=== PATIENT | male | born 1935 | race Caucasian/White ===

== ENCOUNTER 2020-04-25 07:56 | Emergency (ER) | payer OTHER ==
[~2020-04-25] VITALS: Ht 170.2 cm; Wt 72.6 kg
[2020-04-25] MEDS ORDERED: LEVO-T100 MCG PO (08:47)
[2020-04-25] MEDS ORDERED: JANTOVEN2 MG PO (08:48)
[2020-04-25] MEDS ORDERED: ZESTRIL10 MG PO (08:48)
[2020-04-25] MEDS ORDERED: ASA81BEC PO (08:48)
[2020-04-25] MEDS ORDERED: WARFARIN SODIUM10 MG PO (08:48)
[2020-04-25 09:03] LABS: ABSOLUTE NEUTROPHILS 5.4 thou/uL (1.4-8.2); BASOPHILS 0.2 % (0.0-2.0); EOSINOPHILS 0.3 % (0.0-3.0); HEMATOCRIT 35.6 % (42.0-52.0); HEMOGLOBIN 11.7 gm/dL (14.0-18.0); LYMPHOCYTES 11.9 % (24.0-44.0); MCH 31.4 pg (26.0-34.0); MCHC 32.9 g/dL (28.0-37.0); MCV 95.5 fL (80.0-100.0); MONOCYTES 9.9 % (1.0-8.0); PLATELET COUNT 160 thou/uL (150-400); POLYS 77.7 % (36.0-66.0); RBC 3.73 mil/uL (4.50-6.00); RDW 13.7 % (10.5-14.5); WBC 6.9 thou/uL (4.0-11.0)
[2020-04-25 09:05] LABS: CALCIUM 8.4 mg/dL (8.5-10.1); POTASSIUM 4.5 mmol/L (3.5-5.1)
[2020-04-25 09:09] LABS: APTT 40.7 Seconds (24.5-32.8); INR 2.6; PROTIME 26.9 Seconds (9.3-11.4)
[2020-04-25 09:11] LABS: ALBUMIN 2.8 g/dL (3.4-5.0); DIRECT BILIRUBIN 0.1 mg/dL (<0.1-0.2); TOTAL BILIRUBIN 0.6 mg/dL (0.2-1.0); TOTAL PROTEIN 7.6 g/dL (6.4-8.2)
--- NOTE | 2020-04-25 09:17 | EKG ---
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
[2020-04-25 15:02] LABS: URINE BILIRUBIN NEGATIVE (Negative); URINE BLOOD 3+ (Negative); URINE CLARITY SL CLOUDY; URINE COLOR YELLOW; URINE GLUCOSE-RANDOM* NEGATIVE (Negative); URINE KETONES 1+ (Negative); URINE LEUKOCYTES-REFLEX TRACE (Negative); URINE NITRITE-REFLEX NEGATIVE (Negative); URINE PROTEIN (DIPSTICK) 1+ (Negative); URINE UROBILINOGEN 0.2 E.U./dl (0.2-1.0)
[2020-04-25 15:22] LABS: BACTERIA-REFLEX 1-9 Few /HPF (None Seen); CASTS None Seen /LPF (None Seen); CRYSTALS None Seen /LPF (None Seen); SQUAMOUS None Seen /LPF (0-3); URINE RBC >20 Many /HPF (0-2); URINE WBC-REFLEX 6-15 Few /HPF (0-5)
--- NOTE | 2020-04-25 15:52 | EKG ---
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: [facility] : 1935 Requested By: Alayna Lucas Order Number: [id number] MD: Efren Gomez Measurements Intervals [place] Rate: 97 P: 0 [place]: 71 QRS: -32 QRSD: 87 T: 39 QT: 364 QTc: 463 Interpretive Statements Atrial fibrillation Left axis deviation Minimal ST depression, anterolateral leads Borderline prolonged QT interval Baseline wander in lead(s) II,aVR,V5 No previous ECG available for comparison Electronically Signed On 04-25-2020 15:52:18 DIRECTOR OF GRADUATE MEDICAL EDUCATION by Efren Gomez [email or web address] <ELECTRONICALLY SIGNED> By: Efren Gomez MD, [facility] 04/25/20 1552 0834 Efren Gomez MD, [facility] /EPI
[2020-04-25] MEDS ORDERED: KEFLEX500 M1 PO (16:09)
[2020-04-25 16:25] VITALS: BP 114/87
== END 2020-04-25 16:26 | disposition home or self-care (01) ==
LOC: ER 07:56
PROVIDERS: Emergency Medicine
DX: N39.0 Urinary tract infection, site not specified (principal); I48.91 Unspecified atrial fibrillation; N17.9 Acute kidney failure, unspecified; E86.0 Dehydration; R53.1 Weakness; Z79.82 Long term (current) use of aspirin; Z79.01 Long term (current) use of anticoagulants; Z79.899 Other long term (current) drug therapy